=== PATIENT | female | born 1955 | race African-American/Black ===

== ENCOUNTER → 2019-01-20 22:58 | Outpatient (CLI) | payer MEDICARE, MEDICAID ==
[~2019-01-20 22:58] MED LIST: ALDACTONE50 MG PO; ASPIRIN EC81 M1 PO; COREG6.25 MG PO; HYDROCODON-ACE1 EA10 PO; LASIX40 MG PO; LIPITOR40 MG PO; LISINOPRIL40 MG PO; LYRICA100 MG PO; MIRAPEX1 MG PO; NORVASC5 MG PO; NOVOLIN 70/30 110 ML SC; PROZAC40 MG PO
== END | disposition home or self-care (01) ==
LOC: D.LABREF 22:58
PROVIDERS: ATTEND Orthopaedic Surgery
DX: M17.12 Unilateral primary osteoarthritis, left knee (principal)

== ENCOUNTER 2019-02-10 08:00 | Outpatient (CLI) | payer MEDICARE ==
[2019-02-10 11:46] LABS: BASOPHILS 0.3 % (0-2); HEMATOCRIT 38.7 % (36.0-48.0); HEMOGLOBIN 12.2 g/dL (12-16); IMMATURE GRANULOCYTES 0.3 % (0-5); LYMPHOCYTES 49.5 % (15-50); MCH 28.6 pg (26.0-34.0); MCHC 31.5 g/dL (31.0-37.0); MCV 90.6 fL (80.0-100.0); MEAN PLATELET VOLUME 11.7 fL (7.4-10.4); MONOCYTES 7.7 % (2-11); NEUTROPHILS 40.2 % (40-80); PLATELET COUNT 145 10x3/uL (130-400); RBC 4.27 10x6/uL (4.00-5.40); RDW 15.7 % (11.5-14.5); WBC 7.6 10x3/uL (4.8-10.8)
[2019-02-10 12:00] LABS: ANION GAP 13.1 mmol/L (8-16); CALCIUM 8.8 mg/dL (8.5-10.1); CARBON DIOXIDE 27.9 mmol/L (21.0-32.0); CREATININE - SERUM 3.1 mg/dL (0.6-1.3)
[2019-02-10 12:02] LABS: APTT 22.5 SECONDS (22.8-39.4); INR 1.02 (0.85-1.17); PROTIME 12.9 SECONDS (11.6-15.0)
[2019-02-10 13:10] LABS: APPEARANCE SL CLDY (CLEAR); BILIRUBIN NEGATIVE (NEGATIVE); COLOR YELLOW (YELLOW); GLUCOSE NEGATIVE (NEGATIVE); KETONE NEGATIVE (NEGATIVE); NITRITE NEGATIVE (NEGATIVE); PROTEIN NEGATIVE (NEGATIVE); SPECIFIC GRAVITY 1.015 (1.005-1.020); UROBILINOGEN NORMAL (NORMAL)
[2019-02-10 13:11] LABS: BACTERIA MODERATE /hpf (NEGATIVE); EPITHELIAL CELLS 0-5 /hpf (0-5); RED CELLS - URINE 0-5 /hpf (0-5); WHITE CELLS - URINE 25-50 /hpf (NEGATIVE)
== END 2019-02-10 08:01 | disposition home or self-care (01) ==
LOC: D.OPS 08:00 → D.SDCHOLD 10:00 → EDSTATUS 02-15 10:00 → D.SDCHOLD 02-15 10:00
PROVIDERS: ATTEND Orthopaedic Surgery
DX: M17.11 Unilateral primary osteoarthritis, right knee (principal)

== ENCOUNTER → 2019-06-10 17:10 | Outpatient (CLI) | payer MEDICARE, MEDICAID | END | disposition home or self-care (01) | LOC: D.LABREF 17:10 | PROVIDERS: ATTEND Orthopaedic Surgery | DX: M17.12 Unilateral primary osteoarthritis, left knee (principal) ==

== ENCOUNTER 2019-06-21 15:42 | Inpatient (IN) | payer MEDICARE, MEDICAID ==
[~2019-06-21] VITALS: Ht 157.5 cm; Wt 97.5 kg
[2019-08-18 12:17] LABS: HEMATOCRIT 38.1 % (36.0-48.0); HEMOGLOBIN 11.9 g/dL (12-16); MCHC 31.2 g/dL (31.0-37.0); MCV 89.6 fL (80.0-100.0); MEAN PLATELET VOLUME 12.5 fL (7.4-10.4); PLATELET COUNT 153 10x3/uL (130-400); RBC 4.25 10x6/uL (4.00-5.40); RDW 14.9 % (11.5-14.5)
[2019-08-18 12:19] LABS: APTT 27.9 SECONDS (22.8-39.4); INR 1.08 (0.85-1.17)
[2019-08-18 12:21] LABS: ANION GAP 13.1 mmol/L (8-16); CALCIUM 8.9 mg/dL (8.5-10.1); CARBON DIOXIDE 26.7 mmol/L (21.0-32.0); POTASSIUM - SERUM 3.8 mmol/L (3.5-5.1)
[2019-08-18 12:51] LABS: BILIRUBIN NEGATIVE (NEGATIVE); EPITHELIAL CELLS 0-5 /hpf (0-5); GLUCOSE NEGATIVE (NEGATIVE); KETONE NEGATIVE (NEGATIVE); NITRITE NEGATIVE (NEGATIVE); RED CELLS - URINE 0-5 /hpf (0-5); SPECIFIC GRAVITY 1.015 (1.005-1.020)
[2019-08-18 12:53] LABS: BACTERIA MANY /hpf (NEGATIVE)
[2019-08-18 14:20] LABS: EOSINOPHILS 4 % (0-7); LYMPHOCYTES 55 % (15-50); MONOCYTES 11 % (2-11); NEUTROPHILS 30 % (40-80); PLATELET ESTIMATE NORMAL
[2019-08-23] VITALS (10 sets, daily range): BP systolic 110–172; BP diastolic 59–118; BMI 41.2; BMI 39.4
[2019-08-23 09:10] LABS: BILIRUBIN NEGATIVE (NEGATIVE); GLUCOSE NEGATIVE (NEGATIVE); KETONE NEGATIVE (NEGATIVE); NITRITE NEGATIVE (NEGATIVE); SPECIFIC GRAVITY 1.015 (1.005-1.020); UROBILINOGEN NORMAL (NORMAL)
[2019-08-23 09:11] LABS: BACTERIA FEW /hpf (NEGATIVE); EPITHELIAL CELLS 0-5 /hpf (0-5); RED CELLS - URINE RARE /hpf (0-5); WHITE CELLS - URINE 0-5 /hpf (NEGATIVE); YEAST <1+ /hpf (NONE SEEN)
--- NOTE | 2019-08-23 10:48 | NUR ---
PLASMA BLADE SET TO 8. BOVIE PAD RIGHT THIGH. [id number] EXP 10/14/20 LEFT KNEE PREPPED WITH HIBICLENS AND ALCOHOL PRIOR TO CHLORAPREP FROM [place] TO TOES CIRCUMFERENTIALLY TRAFFIC MONITORED IN AND OUT OF ROOM AND KEPT TO A MINIMUM
--- NOTE | 2019-08-23 12:47 | NUR ---
PATIENT EASY TO AROUSE AND ANSWERS QUESTIONS APPROPRIATELY. IMMOBILIZER AND HAYLEE HOSE APPLIED ALONG WITH PLEXIPULSES AND SCD'S. DRESSING INTACT TO LEFT KNEE WITH ICE APPLIED WITH; PEDAL PULSES NOTED W/O EDEMA. SPRAY PAINTER DILAUDID STARTED TO ASSSIT WITH PAIN MANAGEMENT 11/14. IV TO RIGHT F/A WITH IVF INFUSING W/O ANY S/S OF INFECTION/INFILTRATION.
--- NOTE | 2019-08-23 13:27 | NUR ---
PATIENT VERBALIZED IMPROVED PAIN WITH INSTRUCTOR ADJUNCT SURGICAL TECHNICIAN WITH PEDAL PULSES NOTED. RESP EVEN AND UNLABORED AND REINFORDED PROPER USE OF INSTRUCTOR ADJUNCT SURGICAL TECHNICIAN. DRESSING INTACT TO LEFT KNEE WITH RESP EVEN AND UNLABORED.
--- NOTE | 2019-08-23 13:29 | MORECARE ---
CASE MANAGEMENT DISCHARGE SUMMARY PATIENT: LLOYD VASQUEZ UNIT: [id number] ADM DATE: 08/23/19 AGE: 64 : 55 SEX: F ROOM/BED: D.1208 AUTHOR: MARGARITA RICHARDS PHYSICIAN: REFERRING PHYSICIAN: CLARICE COHEN MD DATE OF SERVICE: 08/23/19 Discharge Plan Patient Name: LLOYD VASQUEZ [facility] [facility] 1955 Planned Disposition: Anticipated Discharge Date: Discharge Date: Expected LOS: 0 Initial Reviewer: [email or web address] Initial Review Date: 08/23/2019 Generated: 08/23/19 2:28 pm Patient Name: LLOYD VASQUEZ Page 51005 at 1329 All edits/amendments must be made on the electronic document DICTATION DATE: 08/23/19 1328 ACCOUNT SERVICES MANAGER: KIM 08/23/19 1328 RPT#: [id number] DC DATE: STATUS: ADM IN [facility] [address] [place] [address] END OF REPORT
--- NOTE | 2019-08-23 19:21 | NUR ---
PATIENT RESTING IN BED WITH NO S/S OF DISTRESS AND C/O 9/10 PAIN. ADMINISTERED BOLUS DOSE OF DILAUDID. PATIENT DENIES OTHER NEEDS AT THIS TIME. BED IN LOWEST POSITION AND CALL LIGHT WITHIN REACH. ENCOURAGED THE PATIENT TO CALL IF SHE HAS OTHER NEEDS. WILL CONTINUE TO MONITOR.
[2019-08-24 00:01] VITALS: BP 157/74
[2019-08-24 03:40] VITALS: BP 140/73
--- NOTE | 2019-08-24 04:00 | NUR ---
PLACED PATIENT ON CPM TO LEFT KNEE
[2019-08-24 08:09] VITALS: BP 182/89
--- NOTE | 2019-08-24 08:40 | NUR ---
REPORT RECEIVED. WILL CONTINUE WITH POC. PT CURRENTLY LYING SEMI FOWLERS. CALL LIGHT W/I REACH. FALL PRECAUTIONS IN PLACE. CPM IN PLACE AND FUNCTIONING PROPERLY. DILUADID BARREL STAVE INSPECTOR INFUSING @0.2/01/08 ALONG WITH 1/2NS @50 VIA R.FOR PIV. NO S/S OF DISTRESS NOTED. PT DENIES ANY NEEDS AT THIS TIME. LEFT LEG DRESSING IN PLACE. WILL CTM.
--- NOTE | 2019-08-24 08:49 | NUR ---
BUSINESS OPERATIONS COORDINATOR AND 1/2NS DC'D PER ORDER AND PIV SALINE LOCKED. CPM REMOVED. SCDS IN PLACE. PT DENIES ANY NEEDS. WILL CTM.
[2019-08-24 09:58] LABS: ANION GAP 14.2 mmol/L (8-16); CALCIUM 8.1 mg/dL (8.5-10.1); CARBON DIOXIDE 22.4 mmol/L (21.0-32.0); CREATININE - SERUM 2.4 mg/dL (0.6-1.3); POTASSIUM - SERUM 4.6 mmol/L (3.5-5.1)
[2019-08-24 10:01] LABS: HEMATOCRIT 32.1 % (36.0-48.0); MCH 27.9 pg (26.0-34.0); MCHC 31.2 g/dL (31.0-37.0); MCV 89.4 fL (80.0-100.0); MEAN PLATELET VOLUME 12.3 fL (7.4-10.4); RBC 3.59 10x6/uL (4.00-5.40); RDW 14.8 % (11.5-14.5); WBC 11.8 10x3/uL (4.8-10.8)
--- NOTE | 2019-08-24 10:01 | NUR ---
PT UP TO CHAIR PER PT.
--- NOTE | 2019-08-24 11:15 | MORECARE ---
CASE MANAGEMENT DISCHARGE SUMMARY PATIENT: LLOYD VASQUEZ UNIT: [id number] ADM DATE: 08/23/19 AGE: 64 : 55 SEX: F ROOM/BED: D.1208 AUTHOR: MARGARITA RICHARDS PHYSICIAN: REFERRING PHYSICIAN: CLARICE COHEN MD DATE OF SERVICE: 08/24/19 Discharge Plan Patient Name: LLOYD VASQUEZ [facility] [facility] 1955 Planned Disposition: Inpatient Rehab Anticipated Discharge Date: 08/26/19 Discharge Date: Expected LOS: 3 Initial Reviewer: [email or web address] Initial Review Date: 08/23/2019 Generated: 08/24/19 12:14 pm Last DP export: 08/23/19 12:28 p Patient Name: LLOYD VASQUEZ Page 36710 at 1115 All edits/amendments must be made on the electronic document DICTATION DATE: 08/24/191113 SPECIAL ASSEMBLIES SUPERVISOR: KIM 08/24/19 111 RPT#: [id number] DC DATE: STATUS: ADM IN [facility] [address] [place] [address] END OF REPORT
--- NOTE | 2019-08-24 11:30 | MORECARE ---
CASE MANAGEMENT DISCHARGE SUMMARY PATIENT: LLOYD ALVARADO UNIT: [id number] ADM DATE: 08/23/19 AGE: 64 : 55 SEX: F ROOM/BED: D.1208 AUTHOR: MARGARITA RICHARDS PHYSICIAN: REFERRING PHYSICIAN: CLARICE COHEN MD DATE OF SERVICE: 08/24/19 Discharge Plan Patient Name: LLOYD ALVARADO Facility: [facility]:[place] : 1955 Planned Disposition: Inpatient Rehab Anticipated Discharge Date: 08/26/19 Discharge Date: Expected LOS: 3 Initial Reviewer: [email or web address] Initial Review Date: 08/23/2019 Generated: 08/24/19 12:29 pm Comments DCP- Discharge Planning Updated by [email or web address]: Tram العراقي on 08/24/19 10:[address] DC Plan: [facility] Rehab. CM met with patient to discuss initial discharge planning. Patient is in agreement to proceed with the assessment. Patient reports that she lives at home independently with her her 14 year old g/son. Patient is alert/oriented. Stairs/steps: No. PCP: Dr. Carissa Gary, [place], . Pharmacy: [address] Patient states she has been able to obtain all of her prescribed medications. HHS: [facility] in the past. DME: CPM, Shower Chair, BSC, Walker. Patient gives permission to speak with family members. Emergency contact: Alfonzo Alvarado (son) [phone]. Patient is Independent with all ADL's, medication management STATEMENT CLERK. CM discussed the availability of HH, Rehab, SNF, OP Therapy, DME services. Patient would like to GO INTO [facility]. Patient denies the need for additional services at this time. Patient states she has had several falls recently. Patient denies hospitalization within the past 30 days. Patient states she receives $398.00 in Food [place] per month. Transportation at time of discharge: Alfonzo Alvarado. Last DP export: 08/24/19 10:15 a Patient Name: LLOYD ALVARADO Page 05776 at 1130 All edits/amendments must be made on the electronic document DICTATION DATE: 08/24/191128 GROUND NUCLEAR WEAPONS ASSEMBLY OFFICER: KIM 08/24/191128 RPT#: [id number] DC DATE: STATUS: ADM IN [facility] [address] [facility] [place] [address] END OF REPORT
--- NOTE | 2019-08-24 11:40 | MORECARE ---
CASE MANAGEMENT DISCHARGE SUMMARY PATIENT: LLOYD ALVARADO UNIT: [id number] ADM DATE: 08/23/19 AGE: 64 : 55 SEX: F ROOM/BED: D.1208 AUTHOR: MARGARITA RICHARDS PHYSICIAN: REFERRING PHYSICIAN: CLARICE COHEN MD DATE OF SERVICE: 08/24/19 Discharge Plan Patient Name: LLOYD ALVARADO Facility: [facility]:[place] : 1955 Planned Disposition: Inpatient Rehab Anticipated Discharge Date: 08/26/19 Discharge Date: Expected LOS: 3 Initial Reviewer: [email or web address] Initial Review Date: 08/23/2019 Generated: 08/24/19 12:39 pm Comments DCP- Discharge Planning Updated by [email or web address]: Tram العراقي on 08/24/19 10:[address] DC Plan: [facility] Re[facility]. CM met with patient to discuss initial discharge planning. Patient is in agreement to proceed with the assessment. Patient reports that she lives at home independently with her her 14 year old g/son. Patient is alert/oriented. Stairs/steps: No. PCP: Dr. Carissa Gary, [place], . Pharmacy: [address] Patient states she has been able to obtain all of her prescribed medications. HHS: [facility] in the past. DME: CPM, Shower Chair, BSC, Walker. Patient gives permission to speak with family members. Emergency contact: Alfonzo Alvarado (son) [phone]. Patient is Independent with all ADL's, medication management BIAS CUTTER. CM discussed the availability of HH, Rehab, SNF, OP Therapy, DME services. Patient would like to GO INTO [facility]. Patient denies the need for additional services at this time. Patient states she has had several falls recently. Patient denies hospitalization within the past 30 days. Patient states she receives $398.00 in Food [place] per month. Transportation at time of discharge: Alfonzo Alvarado. Last DP export: 08/24/19 10:30 a Patient Name: LLOYD ALVARADO Page 74101 at 1140 All edits/amendments must be made on the electronic document DICTATION DATE: 08/24/191138 SALES SERVICE ASSISTANT: KIM 08/24/191138 RPT#: [id number] DC DATE: STATUS: ADM IN [facility] [address] [place] [address] END OF REPORT
--- NOTE | 2019-08-24 11:41 | NUR ---
RECEIVED TELEPHONE ORDERS PER CAROLINA GREWAL APN TO CHANGE NORCO ORDER PRN FOR PAIN 4-6 AND ORDER PERCOCET 10 Q4HPRN FOR PAIN 6-10. ORDER PLACED.
[2019-08-24 13:37] VITALS: BMI 39.3
[2019-08-24 14:40] VITALS: Ht 157.5 cm; Wt 97.5 kg
--- NOTE | 2019-08-24 15:12 | NUR ---
Rehab Note- Acute Inpatient Rehab prescreen order received. The patient has [employer] insurance and will require a PreAuth. SHe has a pending OT Eval that will be needed for PreAuth process. Thank you for this referral! Beatrice Coffey RN Clinical Liaison, [facility] Rehab
[2019-08-24 15:28] VITALS: BP 160/77
--- NOTE | 2019-08-24 17:21 | NUR ---
I have reviewed this patient and I concur with the Shift Assessment completed by the Licensed Practical Nurse today this shift.
--- NOTE | 2019-08-24 18:05 | NUR ---
CPM APPLIED TO LEFT LEG. WILL CTM.
--- NOTE | 2019-08-24 21:43 | NUR ---
ASSIST PT UP TO RESTROOM. NO SIGNS OF DISTRESS NOTED. RESPIRATIONS EVEN AND UNLABORED. PT IS BACK IN BED PT REFUSES HUMALOG INSULIN BUT WILL TAKE NOVOLIN. PT C/O OF PAIN PRN PAIN MEDICATION GIVEN. CALL LIGHT AND BED ALARM ON. SCDS ON AND ACTIVE. CALL LIGHT AND OTHER PERSONAL ITEMS WITH IN REACH. SIDERAILS x2. WILL CONTINUE TO MONITOR
--- NOTE | 2019-08-25 03:33 | NUR ---
PT RESTING COMFORTABLY WITH EYES CLOSED. EASILY AWAKEN WITH VOICE STIMULATION. PT ENCOURAGED TO TURN COUGH AND DEEP BREATH. NO DISTRESS NOTED AT THIS TIME. PT ENCOURAGED TO CALL FOR HELP WHEN GETTING IN AND OUT OF BED AND NEEDED. PT HAS NO COMPLAINTS AT THIS TIME. WILL CONTINUE TO MONITOR
[2019-08-25 05:22] LABS: HEMATOCRIT 31.1 % (36.0-48.0); HEMOGLOBIN 9.8 g/dL (12-16); MCH 27.7 pg (26.0-34.0); MCHC 31.5 g/dL (31.0-37.0); MCV 87.9 fL (80.0-100.0); MEAN PLATELET VOLUME 12.2 fL (7.4-10.4); RBC 3.54 10x6/uL (4.00-5.40); RDW 14.6 % (11.5-14.5)
[2019-08-25 05:33] LABS: WBC 15.3 10x3/uL (4.8-10.8)
[2019-08-25 05:39] LABS: ANION GAP 16.2 mmol/L (8-16); CALCIUM 8.7 mg/dL (8.5-10.1); CARBON DIOXIDE 22.9 mmol/L (21.0-32.0); CREATININE - SERUM 2.1 mg/dL (0.6-1.3); POTASSIUM - SERUM 4.1 mmol/L (3.5-5.1)
[2019-08-25 06:18] VITALS: BP 142/72
--- NOTE | 2019-08-25 07:10 | NUR ---
ALERT AND ORIENTED. NO C/O PAIN. NO S/S OF ACUTE DISTRESS NOTED. UP WITH ASSIST AND WALKER. POD#1 LEFT KNEE, DRESSING C/D/I. BED ALARM ON. SCDS AND PLEXI BOOT. CPM ON. IV TO RIGHT FOREARM, SL. SITE PATENT WITHOUT REDNESS OR SWELLING. DENIES ANY NEEDS AT THIS TIME. CALL LIGHT IN REACH. WILL CONTINUE TO MONITOR.
--- NOTE | 2019-08-25 07:21 | NUR ---
WALKED IN ROOM AND PT WAS UP TO THE SHOWER. PT HAS BEEN EDUCATED ON CALLING FOR HELP WHEN GETTING IN AND OUT OF BED. DRESSING TO LEFT KNEE IS WET. DRESSING CHANGED. BED ALARM ON AND ACTIVE. PT ENCOUARGED TO CALL FOR HELP WHEN GETTING IN AND OUOT OF BED. CALL LIGHT AND OTHER PERSONAL ITEMS WITH IN REACH. SIDERAIL X2. WILL CONTINUE TO MONITOR
--- NOTE | 2019-08-25 08:08 | OP ---
PATIENT NAME: LLOYD VASQUEZ MEDICAL RECORD: [id number] :55 LOCATION:D.[place] D.1208 ADMISSION DATE:08/23/19 SURGEON: CLARICE COHEN MD DATE OF OPERATION: 08/23/2019 PREOPERATIVE DIAGNOSIS: Severe degenerative arthritis of the left knee. POSTOPERATIVE DIAGNOSIS: Severe degenerative arthritis of the left knee. PROCEDURE: Left total knee arthroplasty - press fit. SURGEON: Clarice Cohen MD PATTERNMAKER PLASTICS: JOHN Corrales INTRAOPERATIVE COMPLICATIONS: None. SUMMARY OF PATHOLOGIC FINDINGS: While the patient did have severe arthritis, she had substantially excellent bone for press fitting. It is of note that the patient's tourniquet was venous in nature and was taken down after only about 9 minutes of tourniquet time. The rest was done without tourniquet with less bleeding. OPERATIVE SUMMARY IN DETAIL: After obtaining the appropriate preoperative orthopedic surgery consent as well as anesthetic consultation, evaluation and clearance, the patient was brought to the operating room and placed on the operating table in supine position. After adequate general laryngeal mask airway was administered, tourniquet was placed about the proximal aspect of the left lower extremity. Left lower extremity was then prepped and draped in routine sterile fashion. The leg was elevated and exsanguinated, tourniquet was inflated to 350 mmHg. At this point, appropriate timeout was taken and agreed upon by all. After incising the patient's knee with a routine anterior midline incision, a paramedian arthrotomy was performed due to excessive bleeding. It was felt that the very large thigh was creating a venous tourniquet only. The tourniquet was deflated and bleeding subsided to some degree. The distal femur was approached. Distal femoral intramedullary guide hole was created for distal femoral cutting. After distal femoral cutting was completed, the entire proximal tibia was visualized. Soft tissue excision was done in the usual fashion. An intramedullary guide hole was created for cutting the proximal tibia. The proximal tibia was cut in the usual fashion. Appropriate measurements were taken and the distal femur was cut for a size 4. Having completed this, trials were put in corresponding to the final implants that being a size 4 cruciate retaining femoral insert, size 4 tibial component, and size 4 x 13 polyethylene component while the patella was a size 31 x 9 and again these were all press fit. After all the cuts were made, the excision of the arthritic aspect of the patella was then followed by final preparations. After final femoral and tibial preparations were made, the entire cavity was irrigated in pulsatile lavage fashion. The final components with a tamped into place with good fit and fill. The wound was then filled with a gram of vancomycin and a gram of tobramycin, the paramedian arthrotomy was closed with #2 Ethibond by Stevie Phillips. This was then followed by #1 Vicryl, 2-0 Vicryl, and skin gretchen likewise by JOHN Corrales. Sterile dressings were applied. The tourniquet had already been deflated. The patient was awakened and taken to the recovery room in stable condition. All final needle and sponge counts were correct. OPERATIVE REPORT [id number] PEDRORADHALLOYD TRANSINT:[id number] Voice Confirmation ID: [id number] DOCUMENT ID: [id number] VICKI VELAZQUEZ, CLARICE YUN at 0808 CC: [id number] DICTATION DATE: 08/23/192010 OPERATION SUPERVISOR: 08/24/19 0140 ADM IN [facility] [address] [place] [address]
[2019-08-25 09:36] VITALS: BP 158/63
[2019-08-25 09:40] LABS: BILIRUBIN NEGATIVE (NEGATIVE); GLUCOSE NEGATIVE (NEGATIVE); KETONE SMALL mg/dL (NEGATIVE); NITRITE NEGATIVE (NEGATIVE); UROBILINOGEN NORMAL (NORMAL)
[2019-08-25 09:41] LABS: BACTERIA FEW /hpf (NEGATIVE); EPITHELIAL CELLS 0-5 /hpf (0-5); RED CELLS - URINE 0-5 /hpf (0-5); WHITE CELLS - URINE RARE /hpf (NEGATIVE)
--- NOTE | 2019-08-25 12:18 | MORECARE ---
CASE MANAGEMENT DISCHARGE SUMMARY PATIENT: JUDY ALVARADO UNIT: [id number] ADM DATE: 08/23/19 AGE: 64 : 55 SEX: F ROOM/BED: D.1208 AUTHOR: MAURICE,DOC PHYSICIAN: REFERRING PHYSICIAN: CLARICE COHEN MD DATE OF SERVICE: 08/25/19 Discharge Plan Patient Name: JUDY ALVARADO Facility: [facility]:[place] : 1955 Planned Disposition: Inpatient Rehab Anticipated Discharge Date: 08/26/19 Discharge Date: Expected LOS: 3 Initial Reviewer: [email or web address] Initial Review Date: 08/23/2019 Generated: 08/25/19 1:17 pm Comments DCP- Discharge Planning Updated by [email or web address]: Tram العراقي on 08/24/19 10:[address] DC Plan: PATIENT ACCOUNTS CLERK Rehab. CM met with patient to discuss initial discharge planning. Patient is in agreement to proceed with the assessment. Patient reports that she lives at home independently with her her 14 year old g/son. Patient is alert/oriented. Stairs/steps: No. PCP: Dr. Carissa Gary, [place], . Pharmacy: [address] Patient states she has been able to obtain all of her prescribed medications. [facility]HS: [facility] in the past. DME: CPM, Shower Chair, BSC, Walker. Patient gives permission to speak with family members. Emergency contact: Alfonzo Alvarado (son) [phone]. Patient is Independent with all ADL's, medication management LONG DISTANCE BILLING OPERATOR. CM discussed the availability of HH, Rehab, SNF, OP Therapy, DME services. Patient would like to GO INTO PATIENT ACCOUNTS CLERK REHAB. Patient denies the need for additional services at this time. Patient states she has had several falls recently. Patient denies hospitalization within the past 30 days. Patient states she receives $398.00 in Food [place] per month. Transportation at time of discharge: Alfonzo Alvarado. Coverage Notice Reviewer: [id number] Eve العراقي Notice Issued Date-Time: 08/24/2019 12:49 Notice Type: Patient Choice Letter Notice Delivered To: Patient Relationship to Patient: Self Farmworker [employer] Name: Judy Alvarado Delivery Method: HAND - Hand Delivered Liz Days: Prior Verbal Notification: Recipient Understood Notice: Yes Recipient Signature: Yes Med Rec Note Co-signed by Attending: Coverage Notice Comment: Patient choice for PATIENT ACCOUNTS CLERK Rehab signed/given to patient. Original to chart. Reviewer: [email or web address] Eve العراقي Notice Issued Date-Time: 08/25/2019 8:39 Notice Type: Patient Choice Letter Notice Delivered To: Patient Relationship to Patient: Self Farmworker [employer] Name: Judy Alvarado Delivery Method: - Liz Days: Prior Verbal Notification: Recipient Understood Notice: Recipient Signature: Med Rec Note Co-signed by Attending: Coverage Notice Comment: Last DP export: 08/24/19 10:40 a Patient Name: JUDY ALVARADO Page [phone] at 1218 All edits/amendments must be made on the electronic document DICTATION DATE: 08/25/197 RECREATION INSTRUCTOR: KIM 08/25/19 1217 RPT#: [id number] DC DATE: STATUS: ADM IN [facility] [address] [place] [address] END OF REPORT
--- NOTE | 2019-08-25 15:58 | NUR ---
OT NOTE: PT COMPLETED SIT TO STAND WITH SBA/CGA. PT COMPLETED UE AROM WITH FUNCTIONAL TASKS. PT COMPLETED FACE HYGIENE WITH SETUP. [phone] THANK YOU,VANESSA COLLINS
[2019-08-25 16:00] VITALS: BP 135/71
--- NOTE | 2019-08-25 17:33 | MORECARE ---
CASE MANAGEMENT DISCHARGE SUMMARY PATIENT: JUDY ALVARADO UNIT: [id number] ADM DATE: 08/23/19 AGE: 64 : 55 SEX: F ROOM/BED: D.1208 AUTHOR: MAURICE,DOC PHYSICIAN: REFERRING PHYSICIAN: CLARICE COHEN MD DATE OF SERVICE: 08/25/19 Discharge Plan Patient Name: JUDY ALVARADO Facility: [facility]:[place] : 1955 Planned Disposition: Inpatient Rehab Anticipated Discharge Date: 08/26/19 Discharge Date: Expected LOS: 3 Initial Reviewer: [email or web address] Initial Review Date: 08/23/2019 Generated: 08/25/19 6:32 pm Comments DCP- Discharge Planning Updated by [email or web address]: Tram العراقي on 08/25/19 4:[address] DC Plan: [facility]ENDER Rehab pending Insurance Auth. CM met with patient to discuss initial discharge planning. Patient is in agreement to proceed with the assessment. Patient reports that she lives at home independently with her her 14 year old g/son. Patient is alert/oriented. Stairs/steps: No. PCP: Dr. Carissa Gary, [place], . Pharmacy: [address] Patient states she has been able to obtain all of her prescribed medications. [facility]HS: [facility] in the past. DME: CPM, Shower Chair, BSC, Walker. Patient gives permission to speak with family members. Emergency contact: Alfonzo Alvarado (son) [phone]. Patient is Independent with all ADL's, medication management ACID POLYMERIZATION OPERATOR. CM discussed the availability of HH, Rehab, SNF, OP Therapy, DME services. Patient would like to GO INTO [facility] REH[facility]. Patient denies the need for additional services at this time. Patient states she has had several falls recently. Patient denies hospitalization within the past 30 days. Patient states she receives $398.00 in Food [place] per month. Transportation at time of discharge: Alfonzo Alvarado. Coverage Notice Reviewer: [id number] Eve العراقي Notice Issued Date-Time: 08/24/2019 12:49 Notice Type: Patient Choice Letter Notice Delivered To: Patient Relationship to Patient: Self Jack Spooler Tender Name: Judy Box Delivery Method: HAND - Hand Delivered Liz Days: Prior Verbal Notification: Recipient Understood Notice: Yes Recipient Signature: Yes Med Rec Note Co-signed by Attending: Coverage Notice Comment: Patient choice for [facility]AD BLENDER Rehab signed/given to patient. Original to chart. Reviewer: [email or web address] - Tram العراقي Notice Issued Date-Time: 08/25/2019 8:39 Notice Type: Patient Choice Letter Notice Delivered To: Patient Relationship to Patient: Self Jack Spooler Tender Name: Judy Alvarado Delivery Method: - Liz Days: Prior Verbal Notification: Recipient Understood Notice: Recipient Signature: Med Rec Note Co-signed by Attending: Coverage Notice Comment: Last DP export: 08/25/19 11:18 a Patient Name: JUDY ALVARADO Page [phone] at 1733 All edits/amendments must be made on the electronic document DICTATION DATE: 08/25/191731 AIR DEODORIZER SERVICER: KIM 08/25/191731 RPT#: [id number] DC DATE: STATUS: ADM IN [facility] [address] [place] [address] END OF REPORT
--- NOTE | 2019-08-25 18:43 | NUR ---
ALERT AND ORIENTED. NO C/O PAIN. NO S/S OF ACUTE DISTRESS NOTED. CPM ON. DENIES ANY NEEDS AT THIS TIME. CALL LIGHT IN REACH. WILL CONTINUE TO MONITOR.
--- NOTE | 2019-08-25 19:05 | NUR ---
BEDSIDE REPORT COMPLETE. PT LYING IN BED SUPINE EYES CLOSED RESTING QUIETLY. HOB ELEVATED. RR EVEN AND UNLABORED. LEFT FOREARM IV SL. PT CURRENTLY ON CPM TO LEFT KNEE. SCD ON RIGHT LEG, PLEXI BOOT TO LEFT FOOT. CALL LIGHT WITHIN REACH. FALL PRECAUTIONS IN PLACE. CPOC
--- NOTE | 2019-08-25 19:40 | NUR ---
I have reviewed this patient and I concur with the Shift Assessment completed by the Licensed Practical Nurse today this shift.
[2019-08-25 20:00] VITALS: BP 161/70
--- NOTE | 2019-08-25 21:37 | NUR ---
TOOK PT OFF CPM
--- NOTE | 2019-08-25 23:47 | NUR ---
PT LYING IN BED SUPINE EYES CLOSED RESTING COMFORTABLY. RR EVEN AND UNLABORED. CALL LIGHT WITHIN REACH. FALL PRECAUTIONS IN PLACE. CPOC
[2019-08-26] VITALS: BP 90/63
--- NOTE | 2019-08-26 02:29 | NUR ---
PT LYING IN BED EYES CLOSED RESTING COMFORTABLY. RR EVEN AND UNLABORED. CALL LIGHT WITHIN REACH. FALL PRECAUTIONS IN PLACE. CPOC
[2019-08-26 04:22] VITALS: BP 132/76
--- NOTE | 2019-08-26 06:30 | NUR ---
PT PLACED ON CPM LLE.
[2019-08-26 06:48] LABS: ANION GAP 11.2 mmol/L (8-16); CARBON DIOXIDE 26.6 mmol/L (21.0-32.0); POTASSIUM - SERUM 3.8 mmol/L (3.5-5.1)
--- NOTE | 2019-08-26 07:00 | NUR ---
ALERT AND ORIENTED. NO C/O PAIN. NO S/S OF ACUTE DISTRESS NOTED. POD #3 LEFT KNEE, DRESSING C/D/I. ON CPM. JL ALARM. SCDS AND PLEXIBOOT. UP WITH ASSIST, WALKER. IV TO LEFT FOREARM, SL. SITE PATENT WITHOUT REDNESS OR SWELLING. DENIES ANY NEEDS AT THIS TIME. CALL LIGHT IN REACH. WILL CONTINUE TO MONITOR.
[2019-08-26 08:10] VITALS: BP 164/70
[2019-08-26 08:23] LABS: MCH 28.1 pg (26.0-34.0); MCHC 32.1 g/dL (31.0-37.0); MCV 87.5 fL (80.0-100.0); MEAN PLATELET VOLUME 12.1 fL (7.4-10.4); RBC 3.2 10x6/uL (4.00-5.40); RDW 14.7 % (11.5-14.5); WBC 11.8 10x3/uL (4.8-10.8)
--- NOTE | 2019-08-26 12:57 | NUR ---
Nutrition Follow-up: Not eating well. Ate ~25% of breakfast this AM. Denies N/V but c/o constipation. Last BM STUDENT AMBASSADOR. Likes Glucerna. Diet: Diabetic No new wt; last wt: 215# (08/23) Labs noted: Ca 8.0, Glu 136 Meds noted: Novolin, Protonix, Lasix, Humalog, Colace, electrolyte protocol -Encourage PO intake and honor food preferences within diet restrictions. -+Glucerna with meals. -Monitor wt. -RD following.
--- NOTE | 2019-08-26 13:58 | NUR ---
Rehab Note- Re[facility] from [employer] with [facility] approval for an inpatient acute rehab stay. Auth #[id number].Spoke with SELVIN Ugalde and notified her of auth approval. Thank you for this referral! Beatrice Coffey RN Clinical Liaison, [facility] Rehab
[2019-08-26] MEDS ORDERED: ELIQUIS2.5 MG PO (14:07)
[2019-08-26] MEDS ORDERED: PERCOCET 10-321 EAC1 PO (14:08)
--- NOTE | 2019-08-26 14:28 | NUR ---
I have reviewed this patient and I concur with the Shift Assessment completed by the Licensed Practical Nurse today this shift.
--- NOTE | 2019-08-26 15:43 | NUR ---
OT NOTE: PT COMPLETED BED MOB TASKS WITH SBA. PT COMPLETED HAND/FACE HYGIENE WITH SETUP. [phone] THANK YOU,VANESSA COLLINS
--- NOTE | 2019-08-26 17:33 | NUR ---
DISCHARGED PATIENT TO REHAB VIA WHEELCHAIR. CALLED IN REPORT TO STACY. DISCONTINUED IV, CATHETER TIP INTACT. WENT OVER DISCHARGE INSTRUCTIONS WITH PATIENT, VERBALIZED UNDERSTANDING. CHANGED DRESSING TO LEFT KNEE, APPLIED AQUACEL AND WRAPPED WITH ACEWRAP. DENIES ANYTHING FURTHER.
--- NOTE | 2019-08-26 18:34 | MORECARE ---
CASE MANAGEMENT DISCHARGE SUMMARY PATIENT: JUDY ALVARADO UNIT: [id number] ADM DATE: 08/23/19 AGE: 64 : 55 SEX: F ROOM/BED: D.1208 AUTHOR: MAURICE,DOC PHYSICIAN: REFERRING PHYSICIAN: CLARICE COHEN MD DATE OF SERVICE: 08/26/19 Discharge Plan Patient Name: JUDY ALVARADO Facility: [facility]:[place] : 1955 Planned Disposition: Inpatient Rehab Anticipated Discharge Date: 08/26/19 Discharge Date: 08/26/2019 Expected LOS: 3 Initial Reviewer: [email or web address] Initial Review Date: 08/23/2019 Generated: 08/26/19 7:33 pm Comments DCP- Discharge Planning Updated by [email or web address]: Tram العراقي on 08/25/19 4:[address] DC Plan: [facility] pending Insurance Auth. CM met with patient to discuss initial discharge planning. Patient is in agreement to proceed with the assessment. Patient reports that she lives at home independently with her her 14 year old g/son. Patient is alert/oriented. Stairs/steps: No. PCP: Dr. Carissa Gary, [place], . Pharmacy: [address] Patient states she has been able to obtain all of her prescribed medications. HHS: [facility] in the past. DME: CPM, Shower Chair, BSC, Walker. Patient gives permission to speak with family members. Emergency contact: Alfonzo Alvarado (son) [phone]. Patient is Independent with all ADL's, medication management NURSING SECRETARY. CM discussed the availability of HH, Rehab, SNF, OP Therapy, DME services. Patient would like to GO INTO [facility]. Patient denies the need for additional services at this time. Patient states she has had several falls recently. Patient denies hospitalization within the past 30 days. Patient states she receives $398.00 in Food [employer] per month. Transportation at time of discharge: Alfonzo Alvarado. Coverage Notice Reviewer: [id number] Eve العراقي Notice Issued Date-Time: 08/24/2019 12:49 Notice Type: Patient Choice Letter Notice Delivered To: Patient Relationship to Patient: Self Porcelain Enameler Name: Judy Alvarado Delivery Method: HAND - Hand Delivered Liz Days: Prior Verbal Notification: Recipient Understood Notice: Yes Recipient Signature: Yes Med Rec Note Co-signed by Attending: Coverage Notice Comment: Patient choice for [facility] signed/given to patient. Original to chart. Reviewer: [email or web address] Eve العراقي Notice Issued Date-Time: 08/25/2019 8:39 Notice Type: Patient Choice Letter Notice Delivered To: Patient Relationship to Patient: Self Porcelain Enameler Name: Judy Alvarado Delivery Method: - Liz Days: Prior Verbal Notification: Recipient Understood Notice: Recipient Signature: Med Rec Note Co-signed by Attending: Coverage Notice Comment: Reviewer: [email or web address] Eve العراقي Notice Issued Date-Time: 08/26/2019 15:38 Notice Type: IM Discharge Notice Notice Delivered To: Patient Relationship to Patient: Self Porcelain Enameler Name: Judy Alvarado Delivery Method: HAND - Hand Delivered Liz Days: Prior Verbal Notification: Recipient Understood Notice: Yes Recipient Signature: Yes Med Rec Note Co-signed by Attending: Coverage Notice Comment: DC IMM signed/to chart. Last DP export: 08/25/19 4:33 p Patient Name: JUDY ALVARADO Page [id number] at 1834 All edits/amendments must be made on the electronic document DICTATION DATE: 08/26/191832 JOURNEYMAN PRESSMAN: KIM 08/26/191832 RPT#: [id number] DC DATE:08/26/19 STATUS: DIS IN [place] [id number] [place] [address] END OF REPORT
== END 2019-08-26 17:38 | DRG 470 ==
LOC: D.SDCHOLD 07-28 10:00 → D.M3 08-23 07:35 → D.SDCHOLD 08-23 09:10 → D.M3 08-23 12:16
PROVIDERS: Internal Medicine; ADMIT Orthopaedic Surgery; ATTEND Orthopaedic Surgery
PROC: 0SRD06Z Replacement of Left Knee Joint with Oxidized Zirconium on Polyethylene Synthetic Substitute, Open Approach (ICD-10-PCS; principal; 2019-08-23 09:30)
DX: M17.12 Unilateral primary osteoarthritis, left knee (principal); I13.0 Hypertensive heart and chronic kidney disease with heart failure and stage 1 through stage 4 chronic kidney disease, or unspecified chronic kidney disease; N18.4 Chronic kidney disease, stage 4 (severe); E11.22 Type 2 diabetes mellitus with diabetic chronic kidney disease; I50.9 Heart failure, unspecified; J44.9 Chronic obstructive pulmonary disease, unspecified; E78.5 Hyperlipidemia, unspecified

== ENCOUNTER 2019-08-26 16:36 | Inpatient (IN) | payer MEDICARE, MEDICAID ==
[~2019-08-26] VITALS: Ht 154.9 cm; Wt 103.4 kg
[~2019-08-26 16:36] MED LIST changes: +ELIQUIS2.5 MG PO; +PERCOCET 10-321 EAC1 PO
--- NOTE | 2019-08-26 19:30 | NUR ---
NEW ADMIT PT UP TO TOILET, NO NEEDS NOTED, REQUEST CPAP HOOKUP AND PRN PAIN MED WITH MED PASS, REQUEST ALARM REMOVAL, WILL GET ALARM WAIVER SIGNED DURING ASSESSMENT, FLUID/CALL LIGHT WITHIN REACH
[2019-08-26 19:35] VITALS: BP 131/67
[2019-08-26 22:10] VITALS: BP 107/42; BMI 43.2
[2019-08-27 06:49] LABS: BASOPHILS 0.1 % (0-2); EOSINOPHILS 1.5 % (0-7); HEMATOCRIT 28.1 % (36.0-48.0); IMMATURE GRANULOCYTES 0.3 % (0-5); LYMPHOCYTES 37.8 % (15-50); MCH 27.6 pg (26.0-34.0); MCV 86.2 fL (80.0-100.0); MEAN PLATELET VOLUME 11.7 fL (7.4-10.4); MONOCYTES 10.4 % (2-11); NEUTROPHILS 49.9 % (40-80); RBC 3.26 10x6/uL (4.00-5.40); WBC 9.6 10x3/uL (4.8-10.8)
[2019-08-27 06:50] LABS: PLATELET COUNT 153 10x3/uL (130-400)
[2019-08-27 07:02] LABS: ANION GAP 9.5 mmol/L (8-16); CALCIUM 8.2 mg/dL (8.5-10.1); CARBON DIOXIDE 27.4 mmol/L (21.0-32.0); CREATININE - SERUM 2.1 mg/dL (0.6-1.3); POTASSIUM - SERUM 3.9 mmol/L (3.5-5.1)
[2019-08-27 08:00] VITALS: BP 139/61
--- NOTE | 2019-08-27 11:03 | NUR ---
PATIENT ADMITTED TO REHAB FROM ACUTE FLOOR. PCP IS DR. JAY JAY ARORA IN [place]. SHE IS A CLIENT OF [facility]. DME AT HOME IS CPM, SHOWER CHAIR, BEDSIDE COMMODE AND A WALKER. DISCHARGE PLANS ARE FOR HER TO RETURN TO HER HOME. WILL CONTINUE TO FOLLOW WITH PATIENT.
--- NOTE | 2019-08-27 11:21 | NUR ---
HAS BEEN UP WORKING WITH THRAPY. DSG INTACT TO LEFT KNEE. IS SLIGHTLY RED AROUND INCISION AND OUT FROM AROUND DSG. SHE DENIES INCREASED PAIN TO KNEE. PEDAL PULSES PRESENT X2. DENIES NEEDS OR INCREASED PAIN. CALL LIGHT IN REACH
[2019-08-27 13:56] VITALS: BMI 43.1
--- NOTE | 2019-08-27 19:54 | NUR ---
PT IN BED ON TABLET, NO NEEDS NOTED, WAIVER, FLUIDS/CALL LIGHT WITHIN REACH
[2019-08-27 23:33] VITALS: BP 120/53
--- NOTE | 2019-08-28 02:52 | NUR ---
PT ASLEEP AROUSES EASILY, RESP EVEN UNLABORED, NO NEEDS NOTED, FLUIDS/CALL LIGHT WITHIN REACH
[2019-08-28 07:43] VITALS: BP 111/39
--- NOTE | 2019-08-28 20:22 | NUR ---
PATIENT RECEIVED SITTING UP IN BED WATCHING TV. ASSESSMENT & VITAL SIGNS DONE. LEFT KNEE DRESSING C/D/I. BED LOW. CALL LIGHT WITHIN REACH. WILL CONTINUE TO MONITOR.
[2019-08-28 20:25] VITALS: BP 145/58
--- NOTE | 2019-08-28 23:14 | NUR ---
I have reviewed this patient and I concur with the Shift Assessment completed by the Licensed Practical Nurse today this shift.
--- NOTE | 2019-08-29 04:02 | NUR ---
PATIENT HEAD COVERED UP. RESPIRATIONS 20 & EVEN. BED LOW. CALL LIGHT WITHIN REACH. WILL CONTINUE TO MONITOR.
[2019-08-29 08:00] VITALS: BP 144/51
--- NOTE | 2019-08-29 10:51 | NUR ---
LAYING DOWN ON BED RESTING QUIETLY. NO S/S DISTRESS OR NEEDS. LLE LAYING STRAIGHT ON BED. CALL LIGHT IN REACH. SIDE RAILS UP X2. BED IN LOWEST POSITION.
--- NOTE | 2019-08-29 12:54 | NUR ---
RESTING QUIETLY IN BED. NO S/S DISTRESS. CALL LIGHT IN REACH
--- NOTE | 2019-08-29 16:57 | NUR ---
LAYING ON BED RESTING QUIETLY. FAMILY VISITING.
[2019-08-29 19:55] VITALS: BP 158/43
--- NOTE | 2019-08-30 01:34 | NUR ---
I have reviewed this patient and I concur with the Shift Assessment completed by the Licensed Practical Nurse today this shift.
--- NOTE | 2019-08-30 03:30 | NUR ---
PATIENT EYES CLOSED. CPAP ON. BED LOW. CALL LIGHT WITHIN REACH. WILL CONTINUE TO MONITOR.
--- NOTE | 2019-08-30 05:49 | NUR ---
PATIENT FSBS 249. PATIENT JUST DRANK FULL CONTAINER OF ENSURE. LEFT NOTE FOR DR. LEZAMA.
[2019-08-30 07:10] LABS: BASOPHILS 0.1 % (0-2); EOSINOPHILS 1.4 % (0-7); HEMATOCRIT 28.3 % (36.0-48.0); HEMOGLOBIN 8.9 g/dL (12-16); IMMATURE GRANULOCYTES 0.2 % (0-5); LYMPHOCYTES 32.5 % (15-50); MCH 27.4 pg (26.0-34.0); MCHC 31.4 g/dL (31.0-37.0); MCV 87.1 fL (80.0-100.0); MEAN PLATELET VOLUME 10.8 fL (7.4-10.4); MONOCYTES 6.9 % (2-11); NEUTROPHILS 58.9 % (40-80); RBC 3.25 10x6/uL (4.00-5.40); RDW 15.2 % (11.5-14.5); WBC 8.6 10x3/uL (4.8-10.8)
[2019-08-30 07:29] LABS: PLATELET COUNT 221 10x3/uL (130-400)
[2019-08-30 07:33] LABS: ANION GAP 9.3 mmol/L (8-16); CALCIUM 8.4 mg/dL (8.5-10.1); CARBON DIOXIDE 31.2 mmol/L (21.0-32.0); CREATININE - SERUM 1.9 mg/dL (0.6-1.3); POTASSIUM - SERUM 4.5 mmol/L (3.5-5.1)
[2019-08-30 08:00] VITALS: BP 147/72
--- NOTE | 2019-08-30 17:47 | NUR ---
HAS CPM BACK ON LLE. IS SET ON 65 DEGREES. PAIN MEDS GIVEN ORDERED. INCISION IS OPEN TO AIR. IOANA IN PLACE. NO DRAINAGE NOTED. PEDAL PULSES PRESENT X2. CALL LIGHT IN REACH
[2019-08-30 19:31] VITALS: BP 139/68
--- NOTE | 2019-08-30 19:34 | NUR ---
PT IS RESTING IN BED WITH EYES OPEN. ALERT AND ORIENTED X 3. DENIES ACUTE PAIN OR DISCOMFORT AT THIS TIME. CPM IS ON LEFT LEG. PT STATED, "IM NOT SURE WHAT TIME IT WENT ON, BUT IM PRETTY SURE ITS OVERDUE TO COME OFF." CPM REMOVED AT THIS TIME. NO FURTHER NEEDS VOICED. SR'S ARE UP X 2 IN BED. CALL LIGHT AND BEDSIDE TABLE ARE WITHIN EASY REACH.
--- NOTE | 2019-08-30 22:10 | NUR ---
PT IS RESTING QUIETLY IN BED WITH EYES CLOSED. NO ACUTE DISTRESS NOTED.
--- NOTE | 2019-08-30 23:35 | NUR ---
I have reviewed this patient and I concur with the Shift Assessment completed by the Licensed Practical Nurse today this shift.
--- NOTE | 2019-08-31 03:06 | NUR ---
RESTING IN BED WITH EYES CLOSED.
--- NOTE | 2019-08-31 06:02 | NUR ---
PT RESTING IN BED WITH EYES CLOSED. AWOKE EASILY TO VERBAL STIMULI. TOLERATED AM MED WITHOUT DIFFICULTY. FSBS IS 114. AM 70/30 INSULIN CHANGED TO 30 MINS AC TO BE CLOSER TO BREAKFAST.
--- NOTE | 2019-08-31 08:00 | NUR ---
SHIFT ASSMT COMPLETED.
[2019-08-31 08:04] VITALS: BP 121/68
--- NOTE | 2019-08-31 12:00 | NUR ---
SITTING UP EATING.CL IN REACH.
--- NOTE | 2019-08-31 14:12 | NUR ---
Nutrition follow-up: Diet: ADA consistent CHO PO intake 100% of some meals; pt drinking Ensure Labs reviewed; glucsoe under fair to good control Wt: 227# +BM; miralax RDN following.
--- NOTE | 2019-08-31 14:59 | RHP ---
PATIENT: LLOYD VASQUEZ MEDICAL RECORD: [id number] ACCOUNT: [id number] LOCATION:[id number] : 55 ADMISSION DATE: 08/26/19 REHABILITATION HISTORY AND PHYSICAL EXAMINATION POST ADMISSION PHYSICIAN EXAMINATION ADMITTING DIAGNOSIS: Left total knee. HISTORY OF PRESENT ILLNESS: The patient is a 64-year-old morbidly obese female that had a left total knee done on 08/23/2019, due to continued left knee pain and pain with any type of weightbearing type activity. She has not responded to conservative therapy. She has been seen and followed by both family medicine nephrology during her acute stay. She is a diabetic. She has had an elevated white count, chronic kidney disease. She has had some post-procedure blood loss. The patient has a past medical history of hypertension, hyperlipidemia, diabetes, stage IV kidney disease, hepatitis C and COPD. The patient has been having some elevated blood sugars during her stay and we are monitoring her surgical wound, monitoring I's and O's, electrolyte abnormalities. She is on an electrolyte protocol per MD. She got weakness, balance deficits, decreased activity tolerance, impaired mobility, decreased strength, gait disturbance, medical complexity for falls. Her left knee has been giving up. She fatigues easily. She does have inability to care for herself and self-care deficits. These are her barriers to her discharge home. She lives at home with her 14-year-old grandson, was independent with ADLs and mobility prior to this. She is currently set up for max assist for ADLs and mod to max assist for her mobility. She would like to return home with her family at her prior level of functioning or better. COMORBIDITIES: Include morbid obesity, leukocytosis, chronic kidney disease, diabetes, hypertension, osteoarthritis, acute blood loss anemia, postop fever, weakness, and morbid obesity. PAST MEDICAL HISTORY: Significant for vertigo, restless legs, got a history of diabetes, hepatitis C. She has got obstructive sleep apnea, shortness of breath with exertion, acid reflux, arthritis, chronic back pain, knee pain, depression. PAST SURGICAL HISTORY: Includes gallbladder surgery, hysterectomy and tubal ligation. ALLERGIES: CELEBREX. CURRENT MEDICATIONS: Include spironolactone 50 mg daily, she is on lisinopril 40 mg daily, Prozac 40 mg daily, aspirin 81 mg daily, amlodipine 5 mg daily, carvedilol 6.25 mg b.i.d. with meals, she is on NovoLog 35 units in the a.m., she is on furosemide 40 mg b.i.d., polyethylene glycol 17 grams in 8 ounces of water daily, Lyrica 100 mg b.i.d., Mirapex 1 mg at bedtime, she is on NovoLog 10 units at bedtime of the 70/30, Lipitor 40 mg at bedtime, Eliquis 2.5 mg b.i.d., and Percocet 1 tab every 4 hours p.r.n. pain. HABITS: No alcohol or tobacco use. FAMILY HISTORY: Noncontributory. SOCIAL HISTORY: The patient hopes to return back home and get back to her prior level of functioning. HISTORY AND PHYSICAL [id number] LLOYD VASQUEZ REVIEW OF SYSTEMS: GENERAL: Does complain of weakness and fatigue. HEENT: Denies cold, cough, or congestion. CARDIOVASCULAR: Denies any chest pain. PHYSICAL EXAMINATION: VITAL SIGNS: Stable, afebrile. GENERAL: A morbidly obese female in no acute distress upon exam. HEENT: Normocephalic and atraumatic. Mucosa moist. NECK: Supple. No lymphadenopathy. Extraocular muscles are intact. LUNGS: Clear in upper mueller. She does have decreased breath sounds in the bases secondary to her physical habitus. CARDIOVASCULAR: Regular rate and rhythm. She does have a holosystolic murmur. ABDOMEN: Soft, benign, and nondistended. Positive bowel sounds times 4. EXTREMITIES: No clubbing, cyanosis or edema consistent with a recent surgery to her knee. NEUROLOGIC: She is mainly intact. LABORATORY DATA: Her white count is 9.6, H&H of 9 and 28, and platelet count was noted to be 153. Sodium is 138, potassium 3.9, BUN and creatinine of 39 and 2.0, and blood sugar is noted to be 85. ASSESSMENT: This is a 64-year-old female patient admitted to rehab with a working diagnosis of status post total knee replacement. The patient has potential to make improvement. We instituted the following disciplines including, but not limited to physical, occupational, respiratory, speech, nutritional services, prosthetics and orthotics. Given her complex medical condition and risks for more complications, rehabilitation services cannot be provided at a low level of care such as skilled nurse facility. PLAN: 1. Admit to [facility] for intensive inpatient therapy to include the following disciplines; A. Physical therapy to improve gait, all transfer skills and bed mobility to a modified independent level. B. Occupational therapy to improve activities of daily living. C. Case management to assist with discharge planning and placement options. D. Nutrition to assist with nutritional needs. E. Rehabilitation nursing to assist in monitoring the patient's underlying medical conditions and to assist with any type of bowel or bladder management. 2. The patient's current medication and medical care will be continued. 3. The patient will be placed on standard fall precautions. 4. The patient's estimated length of stay is approximately 7-10 days. 5. We will discuss the patient during care team staff meeting this week. TRANSINT:[id number] Voice Confirmation ID: [id number] DOCUMENT ID: [id number] BRIAN notes whether there has been none or any medical/functional change since admission: - No change since prescreen. BRIAN attests patient continues to be appropriate for IRF: HISTORY AND PHYSICAL [id number] LLOYD VASQUEZ - Continues to be approrpriate. BAO LEZAMA MD at 1459 CC: [id number] DICTATION DATE: 08/27/19924 SOFTBALL PLAYER: 08/27/19 1239 ADM IN [place] [id number] [place] [id number]
--- NOTE | 2019-08-31 16:30 | NUR ---
CO PAIN IN LEFT KNEE;SITE WITH REDNESS AND SWELLING.INCISION CLEAN AND INTACT WITH IOANA.CONSULTED .CALLED OFFICE AND SPOKE WITH
--- NOTE | 2019-08-31 19:39 | NUR ---
PT IN BED, LFT KNEE INCISION WARM TO TOUCH LOWER 1/3, 2 VIEW XRAY ORDERED NOT COMPLETED OF YET, DR. COHEN AWARE, NO NEEDS NOTED, FLUIDS/CALL LIGHT WITHIN REACH
--- NOTE | 2019-08-31 21:10 | NUR ---
PT C/O CRAMPING, ACHING, PULLING, TO LEFT KNEE, PRN NORCO GIVEN, KNEE RED, WARM TO TOUCH, ICE PACK PLACED ON KNEE
[2019-09-01 02:18] VITALS: BP 105/38
[2019-09-01 07:04] LABS: BASOPHILS 0.3 % (0-2); HEMATOCRIT 28.3 % (36.0-48.0); HEMOGLOBIN 8.9 g/dL (12-16); IMMATURE GRANULOCYTES 0.8 % (0-5); LYMPHOCYTES 41.2 % (15-50); MCHC 31.4 g/dL (31.0-37.0); MEAN PLATELET VOLUME 10.7 fL (7.4-10.4); MONOCYTES 7.7 % (2-11); RBC 3.18 10x6/uL (4.00-5.40); RDW 15.5 % (11.5-14.5)
[2019-09-01 07:05] LABS: PLATELET COUNT 266 10x3/uL (130-400)
[2019-09-01 07:16] LABS: ANION GAP 12.6 mmol/L (8-16); CALCIUM 8.4 mg/dL (8.5-10.1); CARBON DIOXIDE 29.2 mmol/L (21.0-32.0); CREATININE - SERUM 3.4 mg/dL (0.6-1.3); POTASSIUM - SERUM 4.8 mmol/L (3.5-5.1)
[2019-09-01 07:34] VITALS: BP 96/46
--- NOTE | 2019-09-01 09:06 | NUR ---
CAROLINA OLMSTEAD SAW PT.WILL REVIEW ORDERS.
[2019-09-01 19:43] VITALS: BP 160/49
--- NOTE | 2019-09-01 20:34 | NUR ---
PT IN BED, ICE PACK ON LFT KNEE, REDNESS WARMTH AND PAIN CONTINUES, ICE AND PRN MEDICATION HELPS SOME, WAIVER, FLUIDS/CALL LIGHT WITHIN REACH
--- NOTE | 2019-09-02 03:05 | NUR ---
PT C/O KNEE PAIN, PAIN AWOKE PT, PRN GIVEN, ICE PACK PLACED ON LFT KNEE DUE TO REDNESS AND WARMTH, FLUIDS AND CALL LIGHT WITHIN REACH
[2019-09-02 08:14] VITALS: BP 132/58
[2019-09-02 14:15] VITALS: Ht 154.9 cm; Wt 103.4 kg
[2019-09-02 15:19] LABS: ANION GAP 11.3 mmol/L (8-16); CARBON DIOXIDE 31.1 mmol/L (21.0-32.0); CREATININE - SERUM 2.8 mg/dL (0.6-1.3); POTASSIUM - SERUM 4.4 mmol/L (3.5-5.1)
--- NOTE | 2019-09-02 15:34 | NUR ---
RESTING QUIETLY IN BED. DENIES NEEDS. CALL LIGHT IN HAND.
[2019-09-02 16:37] LABS: CREATININE - URINE 59.2 mg/dL (30-125); PRO/CRE RATIO URINE 0.3 mg/g; PROTEIN - URINE 17.2 mg/dL (0.0-11.9)
[2019-09-02 16:41] LABS: BILIRUBIN NEGATIVE (NEGATIVE); GLUCOSE NEGATIVE (NEGATIVE); KETONE NEGATIVE (NEGATIVE); NITRITE NEGATIVE (NEGATIVE); UROBILINOGEN NORMAL (NORMAL)
[2019-09-02 16:44] LABS: ERYTHROCYTE SEDIMENTATION RATE 66 mm/hr (0-30)
--- NOTE | 2019-09-02 19:43 | NUR ---
PATIENT RECEIVED LAYING IN BED. ASSESSMENT & VITAL SIGNS DONE. NO C/O PAIN OR DISTRESS. BED LOW. CALL LIGHT WITHIN REACH. WILL CONTINUE TO MONITOR.
[2019-09-02 21:53] VITALS: BP 133/64
--- NOTE | 2019-09-02 23:10 | NUR ---
RESPIRATORY HERE. DISTILLED WATER PORED INTO CPAP MACHINE. BED LOW. CALL LIGHT WITHIN REACH. WILL CONTINUE TO MONITOR.
--- NOTE | 2019-09-03 01:55 | NUR ---
PATIENT EYES CLOSED. CPAP ON & CONTINUES. BED LOW. CALL LIGHT WITHIN REACH. WILL CONTINUE T0 MONITOR.
--- NOTE | 2019-09-03 02:21 | NUR ---
I have reviewed this patient and I concur with the Shift Assessment completed by the Licensed Practical Nurse today this shift.
[2019-09-03 06:05] LABS: BASOPHILS 0.2 % (0-2); EOSINOPHILS 1.3 % (0-7); HEMATOCRIT 27.3 % (36.0-48.0); HEMOGLOBIN 8.5 g/dL (12-16); IMMATURE GRANULOCYTES 0.5 % (0-5); LYMPHOCYTES 42.6 % (15-50); MCH 27.4 pg (26.0-34.0); MCHC 31.1 g/dL (31.0-37.0); MCV 88.1 fL (80.0-100.0); MEAN PLATELET VOLUME 10.6 fL (7.4-10.4); MONOCYTES 6.9 % (2-11); NEUTROPHILS 48.5 % (40-80); PLATELET COUNT 296 10x3/uL (130-400); RDW 15.3 % (11.5-14.5); WBC 10.5 10x3/uL (4.8-10.8)
[2019-09-03 07:15] LABS: ANION GAP 13.2 mmol/L (8-16); CALCIUM 8.9 mg/dL (8.5-10.1); CARBON DIOXIDE 27.7 mmol/L (21.0-32.0); CREATININE - SERUM 2.8 mg/dL (0.6-1.3); POTASSIUM - SERUM 4.9 mmol/L (3.5-5.1)
[2019-09-03 08:11] VITALS: BP 145/57
[2019-09-03] MEDS ORDERED: PERCOCET 10-321 EAC1 PO (09:59)
[2019-09-03 14:09] LABS: SPE - ALBUMIN 3.4 g/dL (2.9-4.4); SPE - ALPHA-1 GLOBULIN 0.4 g/dL (0.0-0.4); SPE - ALPHA-2 GLOBULIN 1.1 g/dL (0.4-1.0); SPE - BETA GLOBULIN 1.2 g/dL (0.7-1.3); SPE - GAMMA GLOBULIN 0.9 g/dL (0.4-1.8); SPE - M-SPIKE Not Observed g/dL (Not Observed); SPE - TOTAL PROTEIN 6.9 g/dL (6.0-8.5)
--- NOTE | 2019-09-03 15:50 | NUR ---
Late Entry Patient discussed in weekly IDT meeting 09/01/19. Planned discharge date 09/04/19. CM will follow. Diane Duenas RN Clinical liaison, Rehab
--- NOTE | 2019-09-03 15:52 | NUR ---
Met with patient today regarding planned discharge for Wednesday September 04, 2019. She says her son who will pick her up is not off until Friday and she lives in [facility]. Her insurance has authorized her thru 09/05/19. She wants to stay and discharge on Friday. She has a CPM, BSC, Walker and shower chair at home that was delivered prior to surgery. Home Health for SN, PT, OT has been arranged with [facility]. Called and faxed Kellie the order, H&P, med rec and patient choice form. will fax the discharge instructions to on Friday when patient is discharged. Diane Duenas RN Clinical Liaison, Rehab
--- NOTE | 2019-09-03 16:18 | NUR ---
PT NOT GOING HOME TILL FRIDAY (09/06/19) DUE TO FAMILY NOT ABLE TO COME HER HER TILL THEN. SHE IS PRESENTLY SITTING UP ON SIDE OF BED COLORING IN BOOK. SHE DENIES NEEDS OR QUESTIONS. IOANA INTACT TO LEFT KNEE. CALL LIGHT IN REACH
[2019-09-03 19:41] VITALS: BP 138/68
--- NOTE | 2019-09-03 19:53 | NUR ---
AWAKE AND ALERT. RESTING IN BED WITH RESPIRAITONS UNLABORED. NO DISTRESS NOTED. CALL LIGHT IN REACH.
--- NOTE | 2019-09-04 01:30 | NUR ---
SLEEPING WITH RESPIRATIONS UNLABORED. NO DISTRESS NOTED. CALL LIGHT IN REACH.
--- NOTE | 2019-09-04 05:37 | NUR ---
QUIET HOURS. NO ACUTE CHANGES IN CONDITION THIS SHIFT. RESTING IN BED WITH NO DISTRESS NOTED.
[2019-09-04 05:56] LABS: BASOPHILS 0.1 % (0-2); EOSINOPHILS 1.6 % (0-7); HEMOGLOBIN 8.5 g/dL (12-16); IMMATURE GRANULOCYTES 0.3 % (0-5); LYMPHOCYTES 42.2 % (15-50); MCH 27.7 pg (26.0-34.0); MCHC 31.5 g/dL (31.0-37.0); MCV 87.9 fL (80.0-100.0); MEAN PLATELET VOLUME 10.3 fL (7.4-10.4); MONOCYTES 7.1 % (2-11); NEUTROPHILS 48.7 % (40-80); PLATELET COUNT 287 10x3/uL (130-400); RBC 3.07 10x6/uL (4.00-5.40); RDW 15.5 % (11.5-14.5); WBC 9.6 10x3/uL (4.8-10.8)
[2019-09-04 06:09] LABS: ANION GAP 10.2 mmol/L (8-16); CALCIUM 8.6 mg/dL (8.5-10.1); CARBON DIOXIDE 27.6 mmol/L (21.0-32.0); CREATININE - SERUM 2.6 mg/dL (0.6-1.3); POTASSIUM - SERUM 4.8 mmol/L (3.5-5.1)
[2019-09-04 08:00] VITALS: BP 164/63
--- NOTE | 2019-09-04 08:00 | NUR ---
SHIFT ASSMT COMPLETED.BREAKFAST GIVEN.CL IN REACH.
--- NOTE | 2019-09-04 12:00 | NUR ---
SITTING UP EATING LUNCH.
--- NOTE | 2019-09-04 12:30 | NUR ---
IN BED;PLACED ON CPM.
--- NOTE | 2019-09-04 15:30 | NUR ---
REMOVED OFF CPM.DENIES NEEDS.
--- NOTE | 2019-09-04 19:47 | NUR ---
PATIENT RECEIVED LAYING IN BED WATCHING TV. IV FE ONGOING. NO REACTION AT THIS TIME. BED LOW. CALL LIGHT WITHIN REACH. WILL CONTINUE TO MONITOR.
[2019-09-04 20:39] VITALS: BP 108/51
--- NOTE | 2019-09-05 01:35 | NUR ---
I have reviewed this patient and I concur with the Shift Assessment completed by the Licensed Practical Nurse today this shift.
--- NOTE | 2019-09-05 03:35 | NUR ---
PATIENT EYES CLOSED. RESPIRATIONS 18 & EVEN. PATIENT HAS BEEN TAKING CPAP OFF & ON ALL NIGHT. BED LOW. CALL LIGHT WITHIN REACH. WILL CONTINUE TO MONITOR.
[2019-09-05 06:42] LABS: BASOPHILS 0.2 % (0-2); EOSINOPHILS 1.3 % (0-7); HEMATOCRIT 28.8 % (36.0-48.0); HEMOGLOBIN 8.9 g/dL (12-16); IMMATURE GRANULOCYTES 0.6 % (0-5); LYMPHOCYTES 39.9 % (15-50); MCH 27.4 pg (26.0-34.0); MCHC 30.9 g/dL (31.0-37.0); MCV 88.6 fL (80.0-100.0); MEAN PLATELET VOLUME 10.2 fL (7.4-10.4); MONOCYTES 6.8 % (2-11); NEUTROPHILS 51.2 % (40-80); PLATELET COUNT 270 10x3/uL (130-400); RBC 3.25 10x6/uL (4.00-5.40); RDW 15.7 % (11.5-14.5)
[2019-09-05 07:03] LABS: ANION GAP 10.1 mmol/L (8-16); CALCIUM 8.4 mg/dL (8.5-10.1); CREATININE - SERUM 2.4 mg/dL (0.6-1.3); POTASSIUM - SERUM 5.1 mmol/L (3.5-5.1)
--- NOTE | 2019-09-05 08:00 | NUR ---
SHIFT ASSMT COMPLETED,BREAKFAST GIVEN.
[2019-09-05 08:48] VITALS: BP 124/62
--- NOTE | 2019-09-05 12:00 | NUR ---
SITTING UP EATING LUNCH.
--- NOTE | 2019-09-05 16:00 | NUR ---
ON CPM.SITA WELL.
[2019-09-05 20:00] VITALS: BP 108/36
--- NOTE | 2019-09-05 20:20 | NUR ---
PATIENT RECEIVED SITTING UP IN BED. IV INFUSING FE. ASSESSMENT & VITAL SIGNS DONE. NO C/O PAIN OR DISTRESS. BED LOW. CALL LIGHT WITHIN REACH. WILL CONTINUE TO MONITOR.
--- NOTE | 2019-09-06 01:32 | NUR ---
I have reviewed this patient and I concur with the Shift Assessment completed by the Licensed Practical Nurse today this shift.
--- NOTE | 2019-09-06 06:07 | NUR ---
PATIENT EYES CLOSED. RESPIRATIONS 18 & EVEN. BED LOW. CALL L;IGHT WITHIN REACH. WILL CONTINUE TO MONITOR.
[2019-09-06 06:22] LABS: ANION GAP 11.3 mmol/L (8-16); CALCIUM 8.4 mg/dL (8.5-10.1); CARBON DIOXIDE 29.3 mmol/L (21.0-32.0); CREATININE - SERUM 2.3 mg/dL (0.6-1.3); POTASSIUM - SERUM 5.6 mmol/L (3.5-5.1)
[2019-09-06 07:05] LABS: BASOPHILS 0.2 % (0-2); EOSINOPHILS 1.9 % (0-7); HEMATOCRIT 27.7 % (36.0-48.0); HEMOGLOBIN 8.6 g/dL (12-16); IMMATURE GRANULOCYTES 0.3 % (0-5); LYMPHOCYTES 37.4 % (15-50); MCH 27.7 pg (26.0-34.0); MCV 89.4 fL (80.0-100.0); MEAN PLATELET VOLUME 10.4 fL (7.4-10.4); MONOCYTES 7.4 % (2-11); NEUTROPHILS 52.8 % (40-80); PLATELET COUNT 276 10x3/uL (130-400); RDW 15.9 % (11.5-14.5); WBC 9.1 10x3/uL (4.8-10.8)
[2019-09-06 08:00] VITALS: BP 139/40
[2019-09-06 08:37] VITALS: BP 125/76
--- NOTE | 2019-09-06 11:17 | NUR ---
PATIENT DISCHARGING HOME WITH FAMILY TODAY. DISCHARGE INSTRUCTIONS FAXED TO [facility], PCP AMD REVIEWED WITH PATIENT PER PRIMARY NURSE.
[2019-09-06 18:08] LABS: UPE RAND - ALBUMIN 14.4 % (()); UPE RAND - ALPHA 1 GLOBULIN 5.1 % (()); UPE RAND - ALPHA 2 GLOBULIN 13.7 % (()); UPE RAND - BETA GLOBULIN 31.9 % (())
== END 2019-09-06 11:00 | disposition home health service (06) | DRG 560 ==
LOC: D.REHAB 16:36
PROVIDERS: Internal Medicine Nephrology; ADMIT Emergency Medicine; ATTEND Emergency Medicine
DX: Z47.1 Aftercare following joint replacement surgery (principal); N18.4 Chronic kidney disease, stage 4 (severe); D62 Acute posthemorrhagic anemia; Z96.652 Presence of left artificial knee joint; E11.22 Type 2 diabetes mellitus with diabetic chronic kidney disease; I12.9 Hypertensive chronic kidney disease with stage 1 through stage 4 chronic kidney disease, or unspecified chronic kidney disease; E66.01 Morbid (severe) obesity due to excess calories; D72.829 Elevated white blood cell count, unspecified; M19.90 Unspecified osteoarthritis, unspecified site; R53.1 Weakness; E78.5 Hyperlipidemia, unspecified; J44.9 Chronic obstructive pulmonary disease, unspecified; E87.8 Other disorders of electrolyte and fluid balance, not elsewhere classified; R50.82 Postprocedural fever; M17.12 Unilateral primary osteoarthritis, left knee; E87.5 Hyperkalemia